=== PATIENT | male | born 1955 | race Caucasian/White ===

== ENCOUNTER → 2016-09-15 | Outpatient (CLI) | payer BC ==
[~2016-09-15] MED LIST: DUTA0.5C PO; FLM4 PO; MULT-506 PO; SERT25TA PO; TADA5TAB11 PO; WARF1TAB6 PO; WARF6TAB PO; WARF6TAB5 PO
--- NOTE | 2016-09-15 10:53 | DIAGNOSTIC IMAGING REPORT ---
[facility]UB CLINICAL HISTORY: N20.1 Ureteral [id number] nephrocalcinosis COMPARISON STUDY: 08/28/2014 FINDINGS: Nonobstructive bowel pattern. Inferior vena caval filter in position. Stable lower pole left renal nephrocalcinosis. No significant paravertebral calcification. Several pelvic vascular calcifications. IMPRESSION: Unchanging lower pole left nephrocalcinosis. No change compared to the prior study. The above report was generated using voice recognition software. It may contain grammatical, syntax or spelling errors. Electronically signed by: Keith Brandon M.D. 09/15/2016 10:52 AM Dictated Date/Time: 09/15/2016 10:51 AM
[2016-09-15 12:31] LABS: BLOOD UREA NITROGEN 12 mg/dl (7-18); BUN/CREATININE RATIO 12.6 (10-20); CREATININE 0.95 mg/dl (0.60-1.40)
--- NOTE | 2016-09-20 11:18 | CODING QUERY MEDICAL NECESSITY ---
SUPPORTING DIAGNOSIS NEEDED A supporting diagnosis is required for the test/procedure performed on this patient in order for us to be reimbursed by the patient's insurance. Please provide a supporting diagnosis for the following test/procedure listed below next to the test name along with your signature. *If there is no additional diagnosis for this patient that would support the following test/procedure please document that below next to the test/procedure. Test(s)/Procedure(s) that require a supporting diagnosis: * PSA DIAGNOSIS: Provider Signature: Date: Thank you Maureen Chase [facility] [employer] Once completed, please kindly fax back to [phone] For questions please call [phone]
== END | disposition home or self-care (01) ==
LOC: C.RAD 09:51
PROVIDERS: ATTEND Urology
DX: N20.0 Calculus of kidney (principal); R97.20 Elevated prostate specific antigen [PSA]; N40.0 Benign prostatic hyperplasia without lower urinary tract symptoms

== ENCOUNTER → 2017-02-01 | Outpatient (CLI) | payer BC ==
[2017-02-01 17:00] LABS: INR 2.9 (0.9-1.1); PROTHROMBIN TIME (PATIENT) 30.3 SECONDS (9.0-12.0)
== END | disposition home or self-care (01) ==
LOC: C.LABBC 13:06
PROVIDERS: ATTEND Internal Medicine Pulmonary Disease
DX: I82.4Z9 Acute embolism and thrombosis of unspecified deep veins of unspecified distal lower extremity (principal)

== ENCOUNTER → 2017-06-20 | Outpatient (CLI) | payer OTHER | END | disposition home or self-care (01) | LOC: C.LABSPEC 10:31 | PROVIDERS: ATTEND Nurse Practitioner Adult Health | DX: N20.0 Calculus of kidney (principal) ==